=== PATIENT | male | born 1950 | race Caucasian/White ===

== ENCOUNTER 2016-12-04 12:29 | Emergency (ER) | payer BC ==
[~2016-12-04] VITALS: Ht 172.7 cm; Wt 109.8 kg
[2016-12-04 13:00] LABS: BASO # 0.1 x10^3/uL (0.0-0.2); BASO % 1 % (0-3); EOS # 0.2 x10^3/uL (0.0-0.7); EOS % 2 % (0-3); HEMATOCRIT 43.7 % (39.0-53.0); HEMOGLOBIN 15.1 g/dL (13.0-17.5); LYMPH # 4.1 x10^3/uL (1.0-4.8); LYMPH % 45 % (24-48); MEAN CORPUSCULAR HEMOGLOBIN 31 pg (25-35); MEAN CORPUSCULAR HGB CONC 35 g/dL (31-37); MEAN CORPUSCULAR VOLUME 88 fL (79-100); MONO # 0.7 x10^3/uL (0.0-1.1); MONO % 8 % (0-9); NEUT % 44 % (31-73); PLATELET COUNT 242 x10^3/uL (140-400); RED BLOOD COUNT 4.95 x10^6/uL (4.30-5.70); RED CELL DISTRIBUTION WIDTH 13.6 % (11.5-14.5); WHITE BLOOD COUNT 9.1 x10^3/uL (4.0-11.0)
--- NOTE | 2016-12-04 13:03 | RAD ---
Clinical indications: Code stroke. Right-sided facial numbness and right arm numbness today.. Technique: Noncontrast axial cross sectional scanning of the head was performed. PQRS Compliance Statement: One or more of the following individualized dose reduction techniques were utilized for this examination: 1. Automated exposure control 2. Adjustment of the mA and/or kV according to patient size 3. Use of iterative reconstruction technique Findings: No acute intracranial hemorrhage or midline shift or mass-effect or hydrocephalus or extra-axial fluid collection is seen. No focal hypodense area or sulci effacement is seen to indicate an acute infarct or edema radiographically. No skull fracture or pneumocephalus is seen. No opacification of the mastoid sinuses or the paranasal sinuses is seen. The maxillary sinuses are not completely seen in this study. Impression: No acute intracranial abnormality is seen. Note-this critical result was called to Dr. Monster Garcia in the emergency room at 12:55 PM on December 04, 2016.
[2016-12-04 13:18] LABS: C REACTIVE PROTEIN 1.9 mg/L (0-3.3); CALCIUM 9.1 mg/dL (8.5-10.1); CREATININE 0.9 mg/dL (0.7-1.3); MAGNESIUM 1.6 mg/dL (1.8-2.4); POTASSIUM 4.1 mmol/L (3.5-5.1)
--- NOTE | 2016-12-04 13:22 | ED.ADGEN ---
Past History Past Medical History: Diabetes, Hypertension, TIA Past Surgical History: Other Alcohol Use: None Drug Use: None Adult General HPI HPI Patient is a 66-year-old male presents emergency Department with right facial and arm tingling and numbness. Patient states this began at 1205 today. He states it started very similar to when he had a TIA approximately 10-15 years ago in the past that affected his left side. Patient states at the time of my interview approximately one hour after the beginning of his symptoms, that his symptoms are resolving. He never had any focal weakness or lateralizing symptoms other than the numbness. He denies any headache, visual or gait disturbance, recent illness, chest pain. He does take 81 mg of aspirin daily including today. Review of Systems Review of Systems Constitutional: Denies fever or chills [] Eyes: Denies change in visual acuity, redness, or eye pain [] HENT: Denies nasal congestion or sore throat [] Respiratory: Denies cough or shortness of breath [] Cardiovascular: No additional information not addressed in HPI [] GI: Denies abdominal pain, nausea, vomiting, bloody stools or diarrhea [] : Denies dysuria or hematuria [] Musculoskeletal: Denies back pain or joint pain [] Integument: Denies rash or skin lesions [] Neurologic: Denies headache, focal weakness or sensory changes [] Endocrine: Denies polyuria or polydipsia [] Current Medications Current Medications Current Medications Medications (Trade) Dose Ordered Sig/Verna Start Time Stop Time Status Last Admin Dose Admin Aspirin (Patricia Aspirin) 325 mg 1X ONCE 12/04/16 13:30 12/04/16 13:31 DC 12/04/16 13:30 325 MG Allergies Allergies Allergies Coded Allergies Type Severity Reaction Last Updated Verified No Known Drug Allergies 12/04/16 No Physical Exam Physical Exam Constitutional: Well developed, well nourished, no acute distress, non-toxic appearance. [] HENT: Normocephalic, atraumatic, bilateral external ears normal, oropharynx moist, no oral exudates, nose normal. [] Eyes: PERRLA, EOMI, conjunctiva normal, no discharge. [] Neck: Normal range of motion, no tenderness, supple, no stridor. [] Cardiovascular:Heart rate regular rhythm, no murmur [] Lungs & Thorax: Bilateral breath sounds clear to auscultation [] Abdomen: Bowel sounds normal, soft, no tenderness, no masses, no pulsatile masses. [] Skin: Warm, dry, no erythema, no rash. [] Back: No tenderness, no CVA tenderness. [] Extremities: No tenderness, no cyanosis, no clubbing, ROM intact, no edema. [] Neurologic: Alert and oriented X 3, normal motor function, normal sensory function, no focal deficits noted. [] Psychologic: Affect normal, judgement normal, mood normal. [] Current Patient Data Vital Signs Vital Signs Date Time Temp Pulse Resp B/P Pulse Ox O2 Delivery O2 Flow Rate FiO2 12/04/16 12:49 98.2 94 20 95 Room Air Lab Results Laboratory Tests Test 12/04/16 12:35 12/04/16 12:36 White Blood Count 9.1x10^3/uL (4.0-11.0) Red Blood Count 4.95x10^6/uL (4.30-5.70) Hemoglobin 15.1g/dL (13.0-17.5) Hematocrit 43.7% (39.0-53.0) Mean Corpuscular Volume 88fL (79-100) Mean Corpuscular Hemoglobin 31pg (25-35) Mean Corpuscular Hemoglobin Concent 35g/dL (31-37) Red Cell Distribution Width 13.6% (11.5-14.5) Platelet Count 242x10^3/uL (140-400) Neutrophils (%) (Auto) 44% (31-73) Lymphocytes (%) (Auto) 45% (24-48) Monocytes (%) (Auto) 8% (0-9) Eosinophils (%) (Auto) 2% (0-3) Basophils (%) (Auto) 1% (0-3) Neutrophils # (Auto) 4.0x10^3uL (1.8-7.7) Lymphocytes # (Auto) 4.1x10^3/uL (1.0-4.8) Monocytes # (Auto) 0.7x10^3/uL (0.0-1.1) Eosinophils # (Auto) 0.2x10^3/uL (0.0-0.7) Basophils # (Auto) 0.1x10^3/uL (0.0-0.2) Prothrombin Time 10.0SEC (9.4-11.4) Prothrombin Time INR 1.0 (0.9-1.1) PTT 22SEC (23-33) L Sodium Level 139mmol/L (136-145) Potassium Level 4.1mmol/L (3.5-5.1) Chloride Level 103mmol/L (98-107) Carbon Dioxide Level 24mmol/L (21-32) Anion Gap 12 (6-14) Blood Urea Nitrogen 14mg/dL (8-26) Creatinine 0.9mg/dL (0.7-1.3) Estimated GFR (Cockcroft-Gault) 85.0 Glucose Level 227mg/dL (70-99) H Calcium Level 9.1mg/dL (8.5-10.1) Magnesium Level 1.6mg/dL (1.8-2.4) L Aspartate Amino Transferase (AST) 20U/L (15-37) Alanine Aminotransferase (ALT) 30U/L (16-63) Alkaline Phosphatase 126U/L (46-116) H Troponin I Quantitative < 0.017ng/mL (0-0.055) C-Reactive Protein 1.9mg/L (0-3.3) FQ-Sru-O-Type Natriuretic Peptide 60pg/mL (0-124) Glucose (Fingerstick) 227mg/dL (70-99) H EKG EKG EKG interpreted by me, normal sinus rhythm, 89 beats for minute, normal axis, no ST segment elevation. [] Radiology/Procedures Radiology/Procedures Clinical indications: Code stroke. Right-sided facial numbness and right arm numbness today.. Technique: Noncontrast axial cross sectional scanning of the head was performed. PQRS Compliance Statement: One or more of the following individualized dose reduction techniques were utilized for this examination: 1. Automated exposure control 2. Adjustment of the mA and/or kV according to patient size 3. Use of iterative reconstruction technique Findings: No acute intracranial hemorrhage or midline shift or mass-effect or hydrocephalus or extra-axial fluid collection is seen. No focal hypodense area or sulci effacement is seen to indicate an acute infarct or edema radiographically. No skull fracture or pneumocephalus is seen. No opacification of the mastoid sinuses or the paranasal sinuses is seen. The maxillary sinuses are not completely seen in this study. Impression: No acute intracranial abnormality is seen. Note-this critical result was called to Dr. Leodan Garcia in the emergency room at 12:55 PM on December 04, 2016. DICTATED AND SIGNED BY: CHRISTOPHER PEREZ MD DATE: 12/04/16 4219 CC: LEODAN GARCIA MD; SHAWANDA GOLD MD ~[] Course & Med Decision Making Course & Med Decision Making Pertinent Labs and Imaging studies reviewed. (See chart for details) This is not the patient's first TIA. His symptoms have all but completely resolved. He is already on aspirin therapy. He would like to avoid admission if possible and I do not find this to be unreasonable giving his low risk ABCDE score. He will follow-up with his primary care physician tomorrow. He will return emergency Department sooner if he develops any new or worsening symptoms. [] Final Impression Final Impression Transient ischemic attack [] Problems: Dragon Disclaimer Dragon Disclaimer This electronic medical record was generated, in whole or in part, using a voice recognition dictation system. LEODAN GARCIA MD Dec 04, 2016 13:22
[2016-12-04] MEDS ORDERED: ASPIRIN 325 MG TABLET PO ONE (13:30)
[2016-12-04 13:44] VITALS: BP 146/73
--- NOTE | 2016-12-06 10:46 | EKG ---
[address] [address] Test Date: 2016-12-04 Test Time: 12:36:30 Pat Name: RADHA COLE Department: Room: Gender: M Director Of Quality: PHU : 1950 Requested By: LEODAN FRANCO Order Number: [id number] Reading MD: Measurements Intervals [place] Rate: 89 P: 42 LA: 230 QRS: -19 QRSD: 80 T: 56 QT: 354 QTc: 432 Interpretive Statements SINUS RHYTHM PROLONGED LA INTERVAL LEFTWARD AXIS ABNORMAL ECG RI6.01 Unconfirmed report No previous ECG available for comparison
== END 2016-12-04 13:46 | disposition home or self-care (01) ==
LOC: ER 12:29
DX: G45.9 Transient cerebral ischemic attack, unspecified (principal); E11.9 Type 2 diabetes mellitus without complications; I10 Essential (primary) hypertension; Z86.73 Personal history of transient ischemic attack (TIA), and cerebral infarction without residual deficits; Z79.82 Long term (current) use of aspirin
CPT/HCPCS: 36415; 70450; 80048; 82947; 83735; 83880; 84075; 84450; 84460; 84484; 85027; 85610; 85730; 86140; 86850; 86900; 86901; 93005; 99285-25

== ENCOUNTER 2017-08-20 19:31 | Emergency (ER) | payer BC ==
[~2017-08-20] VITALS: Ht 172.7 cm; Wt 109.8 kg
[2017-08-20] MEDS ORDERED: SODIUM BICARBONATE 650 MG TABLET PO ONE (22:30)
[2017-08-20] MEDS ORDERED: LIPASE/PROTEAS/AMYLAS 10/34/55 CAPSULE.DR. PO ONE (22:30)
[2017-08-20] MEDS ORDERED: IV NORMAL SALINE 1,000ML 1,000 ML IV SCH (23:30)
[2017-08-21] MEDS ORDERED: THIAMINE 200 MG/2 ML VIAL. IV ONE (00:27)
[2017-08-21] MEDS ORDERED: MVI, ADULT NO.4 WITH VIT K 10 ML VIAL IV ONE (00:27)
[2017-08-21] MEDS ORDERED: FOLIC ACID 5 MG/ML SYRINGE for ER IV ONE ×2 (00:27→00:28)
[2017-08-21] MEDS ORDERED: MVI, ADULT NO.4 WITH VIT K 10 ML, FOLIC ACID 1 MG, THIAMINE 100 MG in IV NORMAL SALINE ... IV ONE ×4 (01:00)
--- NOTE | 2017-08-21 01:18 | PHYS DOC ---
General Chief Complaint: GTUBE REPLACEMENT/MALFUNCTION Stated Complaint: FEEDING TUBE CLOGGED Time Seen by MD: 19:44 Source: patient Exam Limitations: no limitations Problems: History of Present Illness Initial Comments Patient is a 66-year-old male who comes to the ED complaining of feeding tube problem. Patient had an anterior cervical fusion 3 weeks ago, he says that there was either a nerve accidentally cut or irritated but he's been unable to swallow since the procedure. His had a #10 Dobbhoff in his left naris since that time with continuous feeds via pump. He says at 1500 today the pump began beeping indicating a clogged. He called the home health nurse who recommended cold and warm water which was ineffective. At that point home health nurse did recommend ED evaluation. On arrival the patient has no complaints physically but is hoping that we can either get the tube working or give him fluids to get him by over the holiday as he has family driving in later today. Timing/Duration: 4-6 hours Severity: mild Modifying Factors: worse with eating Associated Symptoms: other Allergies: Coded Allergies: No Known Drug Allergies (Unverified , 12/04/16) Past Medical History Medical History: other (diabetes, hyperlipidemia, hypertension, hypothyroidism , TIA, obstructive sleep apnea uses CPAP, cervical radiculopathy, dysphasia) Surgical History: other (cervical fusion, cholecystectomy, tonsillectomy, thyroidectomy, uvulectomy) Social History Smoker: non-smoker Alcohol: occasionally Drugs: none Review of Systems Constitutional: denies chills, denies fever Respiratory: denies cough, denies shortness of breath Cardiovascular: denies chest pain, denies palpitations Gastrointestinal: denies abdominal pain, denies nausea, denies vomiting Musculoskeletal: see HPI Psychiatric/Neurological: see HPI Physical Exam General Appearance: WD/WN, no apparent distress Ear, Nose, Throat: hearing grossly normal, normal ENT inspection (feeding through left naris), normal pharynx Neck: non-tender, supple Respiratory: normal breath sounds, no respiratory distress Gastrointestinal: non tender, soft Extremities: non-tender, normal inspection Orders, Labs, Meds Multiple attempts to flush the tube with liquids such as warm Coca-Cola and water as well as with a guidewire were made by the RN with limited success. Pancreas and bicarbonate were dissolved and allowed to sit in the to 20 minutes 2 followed by attempts to flush and at that point the guidewire wouldn't pass however fluid still would not go through the tube. The patient was given a liter of normal saline IV as well as a banana bag as he did not want to be transferred or admitted on . He was adequately hydrated so he could go home and spend [place] with family and then intends to return to [facility] emergency department on the day after as that is where the tube was placed. His vital signs remained stable throughout the ED course and although he had a prolonged ED stay he was pleasant and polite throughout. He and his expressed agreement and understanding of treatment plan and he agrees to return as needed. Departure Time of Disposition: 01:41 Disposition: 01 HOME, SELF-CARE Diagnosis: feeding tube problem, constipation Condition: GOOD Patient Instructions: Constipation, Adult, [id number] Additional Instructions: Contact your home health nurse tomorrow with feeding tube remains clogged. Use glycerin suppository as directed tonight once arriving home. Follow-up with your doctor as directed. Return to ED with new or changing symptoms. TEENA MAYER DO Aug 21, 2017 01:18
[2017-08-21] MEDS ORDERED: GLYCERIN ADULT 1 SUPP.RECT. PR ONE (02:15)
[2017-08-21 02:30] VITALS: BP 114/60
--- NOTE | 2017-08-21 08:04 | RAD ---
Examination: 2 views of the abdomen History: History of feeding tube malfunction Comparison: None available Findings: The feeding tube tip is identified within the distal stomach or in the third part of the duodenum and appears in place. Bowel gas pattern appears unremarkable. No evidence of kinking of the feeding tube. Impression: 1. Feeding tube in place as described above.
== END 2017-08-21 02:30 | disposition home or self-care (01) ==
LOC: ER 19:31
DX: T85.898A Other specified complication of other internal prosthetic devices, implants and grafts, initial encounter (principal); K59.00 Constipation, unspecified; E11.9 Type 2 diabetes mellitus without complications; E03.9 Hypothyroidism, unspecified; E78.5 Hyperlipidemia, unspecified; I10 Essential (primary) hypertension; G47.33 Obstructive sleep apnea (adult) (pediatric); Z86.73 Personal history of transient ischemic attack (TIA), and cerebral infarction without residual deficits; Z90.49 Acquired absence of other specified parts of digestive tract
CPT/HCPCS: 74020; 96361; 96365; 99284-25; 99285-25; J7030

== ENCOUNTER 2020-03-02 15:15 | Emergency (ER) | payer MEDICARE, BC ==
[~2020-03-02] VITALS: Ht 167.6 cm; Wt 120.0 kg
[2020-03-02 15:30] VITALS: BP 145/53
--- NOTE | 2020-03-02 16:12 | PHYS DOC ---
Past History Past Medical History: Bronchitis, Diabetes, High Cholesterol, Hypertension, Hypothyroid, TIA, Other Additional Past Medical Histor: PARTIALLY BLOCKED CAROTID ARTERY Past Surgical History: Cervical Fusion, Cholecystectomy, Tonsillectomy, Other Additional Past Surgical Histo: THYROID Alcohol Use: None Drug Use: None General Adult EDM: Chief Complaint: LACERATION/AVULSION HPI: HPI: Patient is a 69-year-old male who presents to the emergency department for evaluation of a right elbow laceration. He states he was doing the dishes and reached up to grab something when he lowered his elbow he struck a knife that was sitting vertically in the dish drying rack. He sustained a 2 cm stab laceration to his right elbow, just distal to the elbow on the ulnar aspect of the elbow, on the extensor surface. He denies any numbness, or weakness, and has full flexion and extension, pronation and supination, and his elbow, as well as normal function in his hand. He is uncertain of his last tetanus. He denies any other injuries or concerns. Review of Systems: Review of Systems: Constitutional: Denies fever or chills : Denies dysuria Musculoskeletal: Denies back pain or joint pain Neurologic: Denies headache, focal weakness or sensory changes Endocrine: Denies polyuria or polydipsia Heart Score: Risk Factors: Risk Factors: DM, Current or recent (<one month) smoker, HTN, HLP, family history of CAD, obesity. Risk Scores: Score 0 - 3: 2.5% MACE over next 6 weeks - Discharge Home Score 4 - 6: 20.3% MACE over next 6 weeks - Admit for Clinical Observation Score 7 - 10: 72.7% MACE over next 6 weeks - Early Invasive Strategies Allergies: Allergies: Allergies Coded Allergies Type Severity Reaction Last Updated Verified No Known Drug Allergies 12/04/16 No Physical Exam: PE: PHYSICAL EXAM: HEENT: Atruamatic NECK: Supple, normal ROM, non-tender. CARDIAC: Regular Rate and Rhythm LUNGS: Clear Bilaterally EXTREMITIES: On the extensor surface of the right forearm, just distal to the elbow and on the ulnar aspect of the forearm, there is a 2 cm proximal to distal oriented laceration, linear and clean appearing. Surrounding skin sensation and distal PMS appear normal, there is normal range of motion in all joints, remainder the extremities are atraumatic. Current Patient Data: Vital Signs: Vital Signs Date Time Temp Pulse Resp B/P (MAP) Pulse Ox O2 Delivery O2 Flow Rate FiO2 03/02/20 15:30 99.0 89 20 145/53 (83) 96 Room Air EKG: EKG: [] Radiology/Procedures: Radiology/Procedures: [] Course & Med Decision Making: Course & Med Decision Making LACERATION REPAIR PROCEDURE NOTE: The 2 centimeter laceration was irrigated copiously with normal saline, anesthetized with 1% lidocaine with epinephrine, prepped with Betadine, and draped with sterile drapes. Sterile technique was used. The wound was closed with #three 4-0 nylon sutures. Good epithelial approximation was obtained. The patient tolerated the procedure well. Discussed wound care with the patient and suture removal instructions. Dragon Disclaimer: Dragon Disclaimer: This electronic medical record was generated, in whole or in part, using a voice recognition dictation system. Departure Departure: Impression: Primary Impression: Laceration Disposition: HOME/RESIDENCE PRIOR TO ADM Condition: STABLE Referrals: PCP,UNKNOWN (PCP) Patient Instructions: Laceration Care, Adult Additional Instructions: Suture removal 10 to 14 days. Justification of Admission: Justification of Admission: Justification of Admission Dx: N/A LEODAN VELAZQUEZ MD Mar 02, 2020 16:12
[2020-03-02] MEDS ORDERED: DIPH,PERTUSS(ACELL),TET VAC/PF 0.5 ML SYRINGE. VAX IM ONE (16:15)
[2020-03-02] MEDS ORDERED: LIDOCAINE 1% Multi-Dose 20 ML VIAL. IJ ONE (16:15)
[2020-03-02] MEDS ORDERED: BACITRACIN ZINC TOPICAL OINT PACKET. TP ONE ×2 (16:30)
== END 2020-03-02 16:27 | disposition home or self-care (01) ==
LOC: ER 15:15
DX: S51.011A Laceration without foreign body of right elbow, initial encounter (principal); J42 Unspecified chronic bronchitis; E78.00 Pure hypercholesterolemia, unspecified; E11.9 Type 2 diabetes mellitus without complications; I10 Essential (primary) hypertension; E03.9 Hypothyroidism, unspecified; Z86.73 Personal history of transient ischemic attack (TIA), and cerebral infarction without residual deficits; Z90.49 Acquired absence of other specified parts of digestive tract; Z90.89 Acquired absence of other organs; Z98.890 Other specified postprocedural states; W26.0XXA Contact with knife, initial encounter; Y93.89 Activity, other specified; Y92.89 Other specified places as the place of occurrence of the external cause; Y99.8 Other external cause status
CPT/HCPCS: 12001; 90471; 90715; 99283

== ENCOUNTER 2020-03-14 12:53 | Emergency (ER) | payer MEDICARE, BC ==
[~2020-03-14] VITALS: Ht 167.6 cm; Wt 120.0 kg
[2020-03-14 13:05] VITALS: BP 145/53
[2020-03-14] MEDS ORDERED: KETOROLAC 15 MG/ML VIAL. IVP ONE (13:15)
[2020-03-14] MEDS ORDERED: ONDANSETRON PF 4 MG/2 ML VIAL. IVP ONE (13:15)
[2020-03-14] MEDS ORDERED: IV NORMAL SALINE 1,000ML 1,000 ML IV ONE (13:15)
[2020-03-14] MEDS ORDERED: FAMOTIDINE 20 MG/2 ML VIAL IVP ONE (13:15)
[2020-03-14] MEDS ORDERED: METOCLOPRAMIDE HCL 10 MG/2 ML VIAL. IVP ONE (13:30)
[2020-03-14 13:48] LABS: BASO # 0.2 x10^3/uL (0.0-0.2); BASO % 1 % (0-3); EOS # 0.2 x10^3/uL (0.0-0.7); EOS % 1 % (0-3); HEMATOCRIT 41.6 % (39.0-53.0); HEMOGLOBIN 14.1 g/dL (13.0-17.5); LYMPH # 3.7 x10^3/uL (1.0-4.8); LYMPH % 24 % (24-48); MEAN CORPUSCULAR HEMOGLOBIN 31 pg (25-35); MEAN CORPUSCULAR HGB CONC 34 g/dL (31-37); MEAN CORPUSCULAR VOLUME 91 fL (79-100); MONO # 0.9 x10^3/uL (0.0-1.1); MONO % 6 % (0-9); NEUT # 10.8 x10^3uL (1.8-7.7); NEUT % 69 % (31-73); PLATELET COUNT 245 x10^3/uL (140-400); RED BLOOD COUNT 4.57 x10^6/uL (4.30-5.70); RED CELL DISTRIBUTION WIDTH 14.9 % (11.5-14.5); WHITE BLOOD COUNT 15.7 x10^3/uL (4.0-11.0)
[2020-03-14 14:09] LABS: % ATYL 1 % (0-0); % LYMPHS 19 % (24-48); % MONOS 8 % (0-10); % SEGS 72 % (35-66)
[2020-03-14 14:18] LABS: PLT ESTIMATE ADEQUATE (ADEQUATE)
--- NOTE | 2020-03-14 14:35 | RAD ---
PQRS Compliance Statement: One or more of the following individualized dose reduction techniques were utilized for this examination: 1. Automated exposure control 2. Adjustment of the mA and/or kV according to patient size 3. Use of iterative reconstruction technique CT abdomen/pelvis without contrast 03/14/2020 1:47 PM INDICATION: Left lower quadrant abdominal pain. Left flank pain. COMPARISON: None available TECHNIQUE: Multiple axial CT images of the abdomen and pelvis were obtained without intravenous contrast. Coronal and sagittal reformats are provided. FINDINGS: Bibasilar subsegmental atelectasis. Heart size within normal limits. Evaluation of solid abdominal viscera is limited by lack of intravenous contrast. Liver, spleen, bilateral adrenal glands and pancreas are normal in appearance. Gallbladder surgically absent. Abdominal aorta is normal in course and caliber with mild calcified atheromatous plaque. No pathologically enlarged lymph nodes are identified in abdomen and pelvis. There is no free fluid or free intraperitoneal air. Small large bowel are normal in caliber. No bowel obstruction or inflammation. Appendix is normal in appearance. There is a 1.6 cm peripherally calcified lesion in the anterior interpolar left kidney. 2 2 mm calculi are identified in the super pole the left kidney. There are 2 3 to 4 mm calculus in the interpolar left kidney. There is a 3 mm nonobstructing calculus in inferior pole the right kidney. There is mild left hydroureteronephrosis. There is a 4 mm calculus immediately distal to the left ureterovesicular junction within the urinary bladder. Urinary bladder is otherwise within normal limits. Nonspecific fat stranding is identified along the right retroperitoneum anterior to the right psoas muscle extending inferiorly towards the right inguinal region. Prostate and seminal vesicles appear normal. No suspicious osseous abnormality is identified. IMPRESSION: 1. There is a 4 mm calculus within the urinary bladder immediately distal to the left ureterovesicular junction. There is minimal left hydroureteronephrosis. Additional nonobstructing renal calculi identified at the kidneys bilaterally. 2. There is a 1.6 cm peripherally calcified lesion within the anterior interpolar left kidney. Further evaluation with CT abdomen/pelvis renal mass protocol could be of benefit on a nonemergent basis. Sonographic evaluation may be secondary to peripheral calcification. 3. Nonspecific fat stranding is identified along the right retroperitoneum anterior to the right psoas muscle extending inferiorly towards the right inguinal region. No psoas injury is identified. 3 month follow-up CT abdomen/pelvis could be of benefit. Electronically signed by: Ada Birmingham MD (03/14/2020 2:32 PM) [facility]
[2020-03-14] MEDS ORDERED: TAMSULOSIN 0.4 MG CAP.ER.24H. PO ONE (14:45)
[2020-03-14 15:21] LABS: CALCIUM 8.4 mg/dL (8.5-10.1); GFR 74.5; POTASSIUM 4.2 mmol/L (3.5-5.1)
[2020-03-14 15:27] LABS: ALBUMIN 3.4 g/dL (3.4-5.0); TOTAL BILIRUBIN 0.4 mg/dL (0.2-1.0); TOTAL PROTEIN 6.8 g/dL (6.4-8.2)
[2020-03-14] MEDS ORDERED: ONDA4TAB12 PO (15:54)
[2020-03-14] MEDS ORDERED: TAMS0.4C97 PO (15:54)
--- NOTE | 2020-03-14 15:55 | PHYS DOC ---
Past History Past Medical History: Bronchitis, Diabetes, High Cholesterol, Hypertension, Hypothyroid, TIA, Other Additional Past Medical Histor: PARTIALLY BLOCKED CAROTID ARTERY Past Surgical History: Cervical Fusion, Cholecystectomy, Tonsillectomy, Other Additional Past Surgical Histo: THYROID Alcohol Use: None Drug Use: None General Adult EDM: Chief Complaint: ABDOMINAL PAIN HPI: HPI: Patient is a [age] year old [sex] who presents with [] Review of Systems: Review of Systems: Constitutional: Denies fever or chills Eyes: Denies change in visual acuity HENT: Denies nasal congestion or sore throat Respiratory: Denies cough or shortness of breath Cardiovascular: Denies chest pain or edema GI: Denies abdominal pain, nausea, vomiting, bloody stools or diarrhea : Denies dysuria Musculoskeletal: Denies back pain or joint pain Integument: Denies rash Neurologic: Denies headache, focal weakness or sensory changes Endocrine: Denies polyuria or polydipsia Lymphatic: Denies swollen glands Psychiatric: Denies depression or anxiety Heart Score: Risk Factors: Risk Factors: DM, Current or recent (<one month) smoker, HTN, HLP, family history of CAD, obesity. Risk Scores: Score 0 - 3: 2.5% MACE over next 6 weeks - Discharge Home Score 4 - 6: 20.3% MACE over next 6 weeks - Admit for Clinical Observation Score 7 - 10: 72.7% MACE over next 6 weeks - Early Invasive Strategies Current Medications: Current Meds: Current Medications Medications (Trade) Dose Ordered Sig/Verna Start Time Stop Time Status Last Admin Dose Admin Famotidine (Pepcid Vial) 20 mg 1X ONCE 03/14/20 13:15 03/14/20 13:19 DC 03/14/20 15:06 20 MG Ketorolac Tromethamine (Toradol 15mg Vial) 15 mg 1X ONCE 03/14/20 13:15 03/14/20 13:19 DC 03/14/20 15:06 15 MG Metoclopramide HCl (Reglan Vial) 10 mg 1X ONCE 03/14/20 13:30 03/14/20 13:31 DC 03/14/20 15:05 10 MG Ondansetron HCl (Zofran) 4 mg 1X ONCE 03/14/20 13:15 03/14/20 13:22 DC Sodium Chloride 1,000 ml @ 1,000 mls/hr 1X ONCE 03/14/20 13:15 03/14/20 14:14 DC 03/14/20 15:06 1,000 MLS/HR Tamsulosin HCl (Flomax) 0.4 mg 1X ONCE 03/14/20 14:45 03/14/20 14:46 DC 03/14/20 15:06 0.4 MG Allergies: Allergies: Allergies Coded Allergies Type Severity Reaction Last Updated Verified No Known Drug Allergies 12/04/16 No Physical Exam: PE: Constitutional: Well developed, well nourished, no acute distress, non-toxic appearance. [] HENT: Normocephalic, atraumatic, bilateral external ears normal, oropharynx moist, no oral exudates, nose normal. [] Eyes: PERRLA, EOMI, conjunctiva normal, no discharge. [] Neck: Normal range of motion, no tenderness, supple, no stridor. [] Cardiovascular:Heart rate regular rhythm, no murmur [] Lungs & Thorax: Bilateral breath sounds clear to auscultation [] Abdomen: Bowel sounds normal, soft, no tenderness, no masses, no pulsatile masses. [] Skin: Warm, dry, no erythema, no rash. [] Back: No tenderness, no CVA tenderness. [] Extremities: No tenderness, no cyanosis, no clubbing, ROM intact, no edema. [] Neurologic: Alert and oriented X 3, normal motor function, normal sensory function, no focal deficits noted. [] Psychologic: Affect normal, judgement normal, mood normal. [] Current Patient Data: Labs: Laboratory Tests Test 03/14/20 13:36 03/14/20 14:45 White Blood Count 15.7 x10^3/uL (4.0-11.0) H Red Blood Count 4.57 x10^6/uL (4.30-5.70) Hemoglobin 14.1 g/dL (13.0-17.5) Hematocrit 41.6 % (39.0-53.0) Mean Corpuscular Volume 91 fL (79-100) Mean Corpuscular Hemoglobin 31 pg (25-35) Mean Corpuscular Hemoglobin Concent 34 g/dL (31-37) Red Cell Distribution Width 14.9 % (11.5-14.5) H Platelet Count 245 x10^3/uL (140-400) Neutrophils (%) (Auto) 69 % (31-73) Lymphocytes (%) (Auto) 24 % (24-48) Monocytes (%) (Auto) 6 % (0-9) Eosinophils (%) (Auto) 1 % (0-3) Basophils (%) (Auto) 1 % (0-3) Neutrophils # (Auto) 10.8 x10^3uL (1.8-7.7) H Lymphocytes # (Auto) 3.7 x10^3/uL (1.0-4.8) Monocytes # (Auto) 0.9 x10^3/uL (0.0-1.1) Eosinophils # (Auto) 0.2 x10^3/uL (0.0-0.7) Basophils # (Auto) 0.2 x10^3/uL (0.0-0.2) Segmented Neutrophils % 72 % (35-66) H Lymphocytes % 19 % (24-48) L Atypical Lymphocytes % (Manual) 1 % (0-0) H Monocytes % 8 % (0-10) Platelet Estimate Adequate (ADEQUATE) Sodium Level 137 mmol/L (136-145) Potassium Level 4.2 mmol/L (3.5-5.1) Chloride Level 104 mmol/L (98-107) Carbon Dioxide Level 24 mmol/L (21-32) Anion Gap 9 (6-14) Blood Urea Nitrogen 19 mg/dL (8-26) Creatinine 1.0 mg/dL (0.7-1.3) Estimated GFR (Cockcroft-Gault) 74.5 BUN/Creatinine Ratio 19 (6-20) Glucose Level 190 mg/dL (70-99) H Lactic Acid Level 1.1 mmol/L (0.4-2.0) Calcium Level 8.4 mg/dL (8.5-10.1) L Total Bilirubin 0.4 mg/dL (0.2-1.0) Aspartate Amino Transferase (AST) 23 U/L (15-37) Alanine Aminotransferase (ALT) 33 U/L (16-63) Alkaline Phosphatase 108 U/L (46-116) Total Protein 6.8 g/dL (6.4-8.2) Albumin 3.4 g/dL (3.4-5.0) Albumin/Globulin Ratio 1.0 (1.0-1.7) Lipase 127 U/L (73-393) Vital Signs: Vital Signs Date Time Temp Pulse Resp B/P (MAP) Pulse Ox O2 Delivery O2 Flow Rate FiO2 03/14/20 13:05 98.3 60 16 145/53 (83) 100 Room Air EKG: EKG: [] Radiology/Procedures: Radiology/Procedures: [] Course & Med Decision Making: Course & Med Decision Making Pertinent Labs and Imaging studies reviewed. (See chart for details) [] Dragon Disclaimer: Dragon Disclaimer: This electronic medical record was generated, in whole or in part, using a voice recognition dictation system. Departure Departure: Impression: Primary Impression: Kidney stone Additional Impression: Abnormal finding on CT scan Disposition: HOME/RESIDENCE PRIOR TO ADM Condition: STABLE Referrals: PCP,NO (PCP) Patient Instructions: Diet for Kidney Stones, Incidental Abnormal Radiological Finding, Kidney Stones, [id number] Additional Instructions: May take one (1) regular strength Tylenol with each tablet of Tramadol as needed for pain. Scripts Ondansetron (ONDANSETRON ODT) 4 Mg Tab.rapdis 1 TAB PO PRN Q6-8HRS PRN for NAUSEA, #16 TAB Prov: SHANNAN BENTON DO 03/14/20 Tamsulosin Hcl (FLOMAX) 0.4 Mg Cap.er.24h 1 CAP PO DAILY for Kidney stone for 10 Days, #10 CAP Prov: SHANNAN BENTON DO 03/14/20 Justification of Admission: Justification of Admission: Justification of Admission Dx: N/A SHANNAN BENTON DO Mar 14, 2020 15:55
[2020-03-14 16:42] LABS: BILIRUBIN,URINE NEG (NEG); CLARITY,URINE CLEAR; COLOR,URINE YELLOW; GLUCOSE,URINE NEG (NEG)
[2020-03-14 16:43] LABS: BACTERIA,URINE 0 /HPF (0-FEW); HYALINE CASTS, URINE OCC /HPF; NITRITE,URINE NEG (NEG); SQUAMOUS EPITHELIAL CELL,UR OCC /LPF; UROBILINOGEN,URINE 0.2 mg/dL (0.2 mg/dL); WBC,URINE RARE /HPF (0-4)
== END 2020-03-14 16:07 | disposition home or self-care (01) ==
LOC: ER 12:53
DX: N13.2 Hydronephrosis with renal and ureteral calculous obstruction (principal); R93.5 Abnormal findings on diagnostic imaging of other abdominal regions, including retroperitoneum; E11.9 Type 2 diabetes mellitus without complications; E78.00 Pure hypercholesterolemia, unspecified; I10 Essential (primary) hypertension; E03.9 Hypothyroidism, unspecified; Z86.73 Personal history of transient ischemic attack (TIA), and cerebral infarction without residual deficits; Z90.49 Acquired absence of other specified parts of digestive tract
CPT/HCPCS: 36415; 74176; 80053; 81001; 83605; 83690; 85007; 85025; 96374; 96375; 99284; J1885; J2765; J3490; J7030

== ENCOUNTER 2021-09-17 07:15 | Emergency (ER) | payer MEDICARE, BC ==
[~2021-09-17] VITALS: Ht 167.6 cm; Wt 120.0 kg
[~2021-09-17 07:15] MED LIST: ONDA4TAB12 PO; TAMS0.4C97 PO
[2021-09-17 07:34] VITALS: BP 153/67
[2021-09-17 08:55] LABS: BILIRUBIN,URINE NEG (NEG); CLARITY,URINE CLEAR; COLOR,URINE YELLOW; GLUCOSE,URINE NEG (NEG)
[2021-09-17 08:56] LABS: BACTERIA,URINE 0 /HPF (0-FEW); NITRITE,URINE NEG (NEG); RBC,URINE OCC /HPF (0-2); SQUAMOUS EPITHELIAL CELL,UR OCC /LPF; UROBILINOGEN,URINE 0.2 mg/dL (0.2 mg/dL); WBC,URINE OCC /HPF (0-4)
--- NOTE | 2021-09-17 09:23 | PHYS DOC ---
Past History Past Medical History: Bronchitis, Diabetes, High Cholesterol, Hypertension, Hypothyroid, TIA, Other Additional Past Medical Histor: PARTIALLY BLOCKED CAROTID ARTERY Past Surgical History: Cervical Fusion, Cholecystectomy, Tonsillectomy, Other Additional Past Surgical Histo: THYROID Smoking: Non-smoker Alcohol Use: None Drug Use: None General Adult EDM: Chief Complaint: CONSTIPATION HPI: HPI: Mr. Patterson is a 71 yo male with PMH of T2DM, HTN, hypothyroidism and hypercholesteremia and R shoulder injury who presents to the ED for constipation. Patient states he has not endorsed any bowel movements since Monday and currently endorsing distention and lower abdominal pain. Normally patient endorses BM at least every other day. As the days have progressed he has experienced difficulty urinating which he attributes to the constipation but denies any sensory changes. To alleviate the abdominal tenderness and constipation, he has tried 2 stool softeners along with fluid replenishment without any improvement. After the stool softeners patient has experienced leakage in the perianal region. Patient denies any fever, chills, shortness of breath, hematochezia or vomiting. In addition to aforementioned symptoms, patient has been suffering for right shoulder pain that he has been controlling using tramadol, ibuprofen and cyclobenzaprine daily. Review of Systems: Review of Systems: Constitutional: Denies fever or chills Eyes: Denies redness or eye pain HENT: Denies nasal congestion or sore throat Respiratory: Denies cough or shortness of breath Cardiovascular: Denies chest pain or palpitations GI: Endorses abdominal pain, denies nausea, or vomiting : Endorses dysuria but denies hematuria Musculoskeletal: Denies back pain or joint pain Integument: Denies rash or skin lesions Neurologic: Denies headache, focal weakness or sensory changes Complete systems were reviewed and found to be within normal limits, except as documented in this note. Allergies: Allergies: Allergies Coded Allergies Type Severity Reaction Last Updated Verified No Known Drug Allergies 12/04/16 No Physical Exam: PE: Constitutional: Well developed, well nourished, no acute distress, non-toxic appearance HENT: Normocephalic, atraumatic Eyes: PERRL, EOMI, conjunctiva normal, no discharge Neck: Normal range of motion, no tenderness, supple Lungs & Thorax: No respiratory distress, equal chest rise and fall, CTAB Abdomen: Distended, bowel sounds presents X4, suprapubic area tenderness upon light palpation Skin: Warm, dry, no erythema, no rash Rectal exam: Hard stool noted in rectal vault consistent for stool impaction, disimpaction performed Back: No tenderness, no CVA tenderness Extremities: No tenderness, ROM intact, no edema Neurologic: Alert and oriented X 3, normal motor function, normal sensory function, no focal deficits noted Psychologic: Affect normal, judgment normal Current Patient Data: Labs: Laboratory Tests Test 09/17/21 08:17 Urine Collection Type Unknown Urine Color Yellow Urine Clarity Clear Urine pH 5.5 Urine Specific [place] >=1.030 Urine Protein 100 mg/dl (NEG-TRACE) Urine Glucose (UA) Neg mg/dL (NEG) Urine Ketones (Stick) Neg mg/dL (NEG) Urine Blood Trace (NEG) Urine Nitrite Neg (NEG) Urine Bilirubin Neg (NEG) Urine Urobilinogen Dipstick 0.2 mg/dL (0.2 mg/dL) Urine Leukocyte Esterase Neg (NEG) Urine RBC Occ /HPF (0-2) Urine WBC Occ /HPF (0-4) Urine Squamous Epithelial Cells Occ /LPF Urine Bacteria 0 /HPF (0-FEW) Vital Signs: Vital Signs Date Time Temp Pulse Resp B/P (MAP) Pulse Ox O2 Delivery O2 Flow Rate FiO2 09/17/21 07:34 97.9 74 16 153/67 (95) 98 Room Air EKG: EKG: [] Radiology/Procedures: Radiology/Procedures: PROCEDURE: SHOULDER 2+V RIGHT Exam: XR SHOULDER_RIGHT 2+ VIEWS History: Pain status post injury at work. Comparison: None. Findings: Osseous mineralization is normal. The humeral head is somewhat high riding in the glenoid with loss of the subacromial space. Moderate glenohumeral visualized degenerative changes of cervical and thoracic spine. C3-C5 ACDF. Soft tissues are unremarkable. Impression: 1. Degenerative changes without acute osseous abnormality of the right shoulder. 2. Somewhat high riding humeral head suggests possible rotator cuff tear. Electronically signed by: Alirio Pérez MD (09/17/2021 10:23 AM) [id number] Heart Score: C/O Chest Pain: N/A Course & Med Decision Making: Course & Med Decision Making Pertinent Labs and Imaging studies reviewed. (See chart for details) Mr. Patterson is a 71 yo male with PMH of T2DM, HTN, hypothyroidism and hypercholesteremia and R shoulder injury who presents to the ED for constipation. A bladder scan was performed with concern for large amount of retained urine post void and a Heller catheter was placed to decompress the bladder. Down drain with approximately 1100ml. An urinalysis was performed showing no sign of infection. After bladder decompression, manual disimpaction was performed to alleviate his symptoms. His constipation is likely secondary to tramadol overuse for his shoulder pain. Patient requested a R shoulder X-ray to rule out any fracture before they see a doctor next week. Patient stable for discharge with outpatient follow-up with PCP/Orthopedics/Workman's comp/Urology. Orthopedic and urology referrals provided. Discussed findings and plan with patient and spouse, who acknowledge understanding and agreement. Belkis Disclaimer: Belkis Disclaimer: This electronic medical record was generated, in whole or in part, using a voice recognition dictation system. Additional Procedures Progress Fecal disimpaction: Verbal consent obtained. Time out performed. Hand hygiene utilized. KY jelly utilized with exploration of rectal vault noting hard formed stool. Hard stool broken up with finger and successful removal of large amount of hard stool. Patient tolerated procedure well and without difficulty. Departure Departure: Impression: Primary Impression: Urinary retention Additional Impressions: Constipation Qualified Codes: K59.00 - Constipation, unspecified Right shoulder injury Qualified Codes: S49.91XA - Unspecified injury of right shoulder and upper arm, initial encounter Disposition: HOME / SELF CARE / HOMELESS Condition: STABLE Referrals: LISA KNIGHT MD (PCP) AYANNA COTO II, MD, BRADLEY W MD Patient Instructions: Constipation, Adult, [id number], Heller Catheter Care, Adult, Shoulder Pain, [id number], Urinary Retention, Acute, Male, [id number] Additional Instructions: Increase fluid hydration. May take stool softeners nightly. May also take MiraLAX as needed for acute constipation. Follow closely with Workmen's Comp. for further evaluation and treatment. SHANNAN BENTON DO Sep 17, 2021 09:23
--- NOTE | 2021-09-17 10:25 | RAD ---
Exam: XR SHOULDER_RIGHT 2+ VIEWS History: Pain status post injury at work. Comparison: None. Findings: Osseous mineralization is normal. The humeral head is somewhat high riding in the glenoid with loss o f the subacromial space. Moderate glenohumeral visualized degenerative changes of cervical and thorac ic spine. C3-C5 ACDF. Soft tissues are unremarkable. Impression: 1. Degenerative changes without acute osseous abnormality of the right shoulder. 2. Somewhat high riding humeral head suggests possible rotator cuff tear. Electronically signed by: Alirio Pérez MD (09/17/2021 10:23 AM) [id number]
== END 2021-09-17 11:35 | disposition home or self-care (01) ==
LOC: ER 07:15
DX: S49.91XA Unspecified injury of right shoulder and upper arm, initial encounter (principal); R33.9 Retention of urine, unspecified; K59.00 Constipation, unspecified; E11.9 Type 2 diabetes mellitus without complications; E78.00 Pure hypercholesterolemia, unspecified; I10 Essential (primary) hypertension; E03.9 Hypothyroidism, unspecified; X58.XXXA Exposure to other specified factors, initial encounter; Y93.89 Activity, other specified; Y92.89 Other specified places as the place of occurrence of the external cause; Y99.8 Other external cause status
CPT/HCPCS: 51702; 73030; 81001; 99284